=== PATIENT | male | born 1980 | race Caucasian/White ===

== ENCOUNTER 2017-09-12 08:53 | Outpatient (RCR) | payer OTHER | END 2017-10-07 | LOC: M PT 08:53 | DX: Z51.89 Encounter for other specified aftercare (principal); M25.579 Pain in unspecified ankle and joints of unspecified foot; M25.561 Pain in right knee | CPT/HCPCS: 97110 ==

== ENCOUNTER 2017-10-17 09:05 | Outpatient (RCR) | payer OTHER | END 2017-11-07 | LOC: M PT 09:05 | DX: Z51.89 Encounter for other specified aftercare (principal); M25.579 Pain in unspecified ankle and joints of unspecified foot; M25.561 Pain in right knee | CPT/HCPCS: 97110 ==

== ENCOUNTER → 2018-02-07 | Outpatient (REF) | payer OTHER | LOC: M LAB REF 18:28 | DX: R30.0 Dysuria (principal) | CPT/HCPCS: 87086 ==

== ENCOUNTER → 2018-02-07 | Outpatient (CLI) | payer OTHER | LOC: M RAD 11:32 | DX: R30.0 Dysuria (principal) | CPT/HCPCS: 74018 ==

== ENCOUNTER 2019-03-23 20:36 | Emergency (ER) | payer OTHER ==
[~2019-03-23] VITALS: Ht 177.8 cm; Wt 109.1 kg
[~2019-03-23 20:36] MED LIST: MAPA500T17 PO; METR500T10 PO; MILK10SU PO; NORCOBULK PO; NORCOTAB PO; TYLENOL PO; [UNRECOGNIZED DRUG - CODE] PO
[2019-03-23] MEDS ORDERED: ONDANSETRON 4MG/2ML VIAL (J2405) IV ONE (22:00)
[2019-03-23] MEDS ORDERED: NS 1,000 ML IV ONE (22:00)
[2019-03-23] MEDS ORDERED: KETOROLAC 30 MG/ML VIAL (J1885) IV ONE (22:00)
[2019-03-23 22:18] LABS: BASO # 0.1 10^3/uL (0.0-0.2); BASO % 0.5 % (0.0-1.0); EOS # 0.3 10^3/uL (0.0-0.50); EOS % 2.3 % (0.0-3.0); HEMATOCRIT 45.1 % (42.0-52.0); HEMOGLOBIN 15.5 g/dl (13.5-17.5); LYMPH # 3.2 10^3/uL (1.5-4.5); LYMPH % 23.6 % (24.0-44.0); MEAN CORPUSCULAR HEMOGLOBIN 31.5 pg (27.0-33.0); MEAN CORPUSCULAR HGB CONC 34.4 g/dl (32.0-36.5); MEAN CORPUSCULAR VOLUME 91.7 fl (80.0-96.0); MONO # 1.1 10^3/uL (0.0-0.8); NEUTROPHILS # 8.9 10^3/uL (1.8-7.7); NEUTROPHILS % 65.2 % (36.0-66.0); PLATELET COUNT, AUTOMATED 231 10^3/uL (150-450); RED BLOOD COUNT 4.92 10^6/uL (4.30-6.10); WHITE BLOOD COUNT 13.7 10^3/uL (4.0-10.0)
[2019-03-23 22:40] LABS: ALBUMIN 3.8 GM/DL (3.2-5.2); ALT/SGPT 35 U/L (12-78); BILIRUBIN,DIRECT 0.1 MG/DL (0.0-0.2); BILIRUBIN,TOTAL 0.4 MG/DL (0.2-1.0); BLOOD UREA NITROGEN 11 MG/DL (7-18); CARBON DIOXIDE LEVEL 27 MEQ/L (21-32); CHLORIDE LEVEL 108 MEQ/L (98-107); CREATININE FOR GFR 0.83 MG/DL (0.70-1.30); GLOMERULAR FILTRATION RATE > 60.0 (>60); GLUCOSE, FASTING 95 MG/DL (70-100); LIPASE 118 U/L (73-393); SODIUM LEVEL 142 MEQ/L (136-145); TOTAL PROTEIN 7.1 GM/DL (6.4-8.2)
[2019-03-23] MEDS ORDERED: ISOVUE-370 76% 100ML VIAL (Q9967) As Ordered ONE (23:25)
--- NOTE | 2019-03-24 01:05 | REPVR ---
EXAM: CT Abdomen and Pelvis With Contrast EXAM DATE/TIME: 03/23/2019 11:35 PM CLINICAL HISTORY: 38 years old, male; Right epigastric pain. TECHNIQUE: Imaging protocol: Axial computed tomography images of the abdomen and pelvis with intravenous contrast. Coronal and sagittal reformatted images were created and reviewed. Radiation optimization: All CT scans at this facility use at least one of these dose optimization techniques: automated exposure control; mA and/or kV adjustment per patient size (includes targeted exams where dose is matched to clinical indication); or iterative reconstruction. Contrast material: ISOVUE 370; Contrast volume: 100 ml; Contrast route: IV; COMPARISON: CT ABD PELVIS WITH CONTRAST 05/25/2013 7:53 AM (The report from this study was not available for review at the time of this interpretation.) FINDINGS: Lungs: There is bibasilar atelectasis. Heart: No cardiomegaly or pericardial effusion is noted. ABDOMEN: Liver: The attenuation of the liver is lower compared to the spleen, which can be seen with fatty liver infiltration. There is a 14 mm cyst in the caudate lobe that has increased in size from 5 mm since the prior CT scan on 05/25/2013. The contour of the liver is smooth. The liver is enlarged and measures 17.5 cm in craniocaudal dimension at the level of the right midclavicular line. Gallbladder and bile ducts: There has been a cholecystectomy. There is no fluid collection in the gallbladder fossa. No dilation of the bile ducts is noted. Pancreas: Normal. No dilation of the main pancreatic duct is noted. Spleen: Normal. No splenomegaly is noted. Adrenals: Normal. No adrenal mass. Kidneys and ureters: There is a 3 mm calculus in the inferior to the right kidney and a 3 mm calculus in the inferior pole of the left kidney. No stones are noted in the ureters. There is no hydronephrosis or hydroureter. No renal lesion is identified. There are no wedge-shaped areas of low attenuation in the kidneys to suggest pyelonephritis. There is no renal abscess or perinephric fluid collection. Stomach and bowel: There is no evidence for a bowel obstruction, diverticulosis, diverticulitis, colitis, pneumatosis intestinalis, intussusception, volvulus, or perforated viscus. Appendix: The retrocecal appendix is normal. There is no evidence for appendicitis. PELVIS: Bladder: Unremarkable. No calculi are noted in the bladder. Reproductive: There is a punctate calcification the prostate gland. The seminal vesicles are unremarkable. ABDOMEN and PELVIS: Intraperitoneal space: Unremarkable. No free air. No fluid collection. Bones/joints: There is a lumbosacral transitional vertebra that will be designated as L5 above the last well-defined intervertebral disc, and there is broadening of the both transverse proceses of the lumbosacral transitional vertebra, which are fused to both sides of the sacrum (Castellvi type IIIb lumbosacral transitional vertebra) and this stabilizes the level below the lumbosacral transitional vertebra and leads to the propensity for increased mobility and degenerative disc disease at the level above the lumbosacral transitional vertebra (Bertolotti's syndrome). T12 is designated as the last vertebral body that has small ribs. There are degenerative changes in lumbar spine at the L4-L5 and L5-S1 levels. Soft tissues: There is a small fat containing epigastric hernia that is new compared to the prior CT scan on 05/25/2013 and is located just to the right of midline and 3 cm superior to the umbilicus, and the hernia sac measures 3.4 cm in diameter and the defect in the anterior abdominal wall measures approximately 7 mm in transverse dimension and 5 mm in craniocaudal dimension. There is also a tiny fat containing umbilical hernia, which is similar in appearance compared to the prior CT scan on 05/25/2013. Vasculature: The abdominal aorta is normal in caliber and patent. The iliac arteries, common femoral arteries, renal arteries, celiac artery, superior mesenteric artery, and inferior mesenteric artery are patent. The renal veins, portal veins, splenic vein, superior mesenteric vein, and inferior mesenteric vein are patent. Lymph nodes: No enlarged lymph nodes. IMPRESSION: 1. Small fat containing epigastric hernia that is new compared to the prior CT scan on 05/25/2013 and is located just to the right of midline and 3 cm superior to the umbilicus. 2. Tiny fat containing umbilical hernia, which is similar in appearance compared to the prior CT scan on 05/25/2013. 3. Bilateral nonobstructive nephrolithiasis. 4. Hepatomegaly. Electronically signed by: Wellington Powell On 03/24/2019 01:05:00 AM
[2019-03-24] MEDS ORDERED: KETO10TAB PO (01:26)
[2019-03-24] MEDS ORDERED: CYCL5TAB PO (01:26)
[2019-03-24 01:30] VITALS: BP 138/96
[2019-03-24] MEDS ORDERED: CYCLOBENZAPRINE 10 MG TAB PO ONE (01:45)
== END 2019-03-24 01:40 | disposition home or self-care (01) ==
LOC: M ED 20:36
DX: K43.9 Ventral hernia without obstruction or gangrene (principal); R16.0 Hepatomegaly, not elsewhere classified; Q76.49 Other congenital malformations of spine, not associated with scoliosis; K40.90 Unilateral inguinal hernia, without obstruction or gangrene, not specified as recurrent; K42.9 Umbilical hernia without obstruction or gangrene; N20.0 Calculus of kidney; R51 Headache; Z87.442 Personal history of urinary calculi; Z72.0 Tobacco use
CPT/HCPCS: 74177; 80048; 80076; 81001; 83690; 85025; 96361; 96374; 96375; 99284; J1885; J2405; Q9967

== ENCOUNTER 2019-03-28 10:09 | Emergency (ER) | payer OTHER ==
[~2019-03-28] VITALS: Ht 175.3 cm; Wt 105.9 kg
[~2019-03-28 10:09] MED LIST changes: +CYCL5TAB PO; +KETO10TAB PO
[2019-03-28 10:57] LABS: BASO # 0.1 10^3/uL (0.0-0.2); BASO % 0.5 % (0.0-1.0); EOS # 0.4 10^3/uL (0.0-0.50); EOS % 3.2 % (0.0-3.0); HEMOGLOBIN 15.9 g/dl (13.5-17.5); LYMPH # 2.6 10^3/uL (1.5-4.5); LYMPH % 21.3 % (24.0-44.0); MEAN CORPUSCULAR HEMOGLOBIN 31.6 pg (27.0-33.0); MEAN CORPUSCULAR HGB CONC 33.8 g/dl (32.0-36.5); MEAN CORPUSCULAR VOLUME 93.4 fl (80.0-96.0); MONO # 0.6 10^3/uL (0.0-0.8); MONO % 5.2 % (0.0-5.0); NEUTROPHILS # 8.6 10^3/uL (1.8-7.7); NEUTROPHILS % 69.5 % (36.0-66.0); PLATELET COUNT, AUTOMATED 207 10^3/uL (150-450); RED BLOOD COUNT 5.03 10^6/uL (4.30-6.10); WHITE BLOOD COUNT 12.3 10^3/uL (4.0-10.0)
[2019-03-28] MEDS ORDERED: NS 1,000 ML IV ONE (11:15)
[2019-03-28] MEDS ORDERED: KETOROLAC 30 MG/ML VIAL (J1885) IV ONE (11:15)
[2019-03-28] MEDS ORDERED: ONDANSETRON 4MG/2ML VIAL (J2405) IV ONE (11:15)
[2019-03-28 11:27] LABS: ALBUMIN 3.1 GM/DL (3.2-5.2); ALT/SGPT 25 U/L (12-78); BILIRUBIN,DIRECT 0.1 MG/DL (0.0-0.2); BILIRUBIN,TOTAL 0.6 MG/DL (0.2-1.0); BLOOD UREA NITROGEN 12 MG/DL (7-18); CALCIUM LEVEL 9.1 MG/DL (8.5-10.1); CARBON DIOXIDE LEVEL 23 MEQ/L (21-32); CHLORIDE LEVEL 110 MEQ/L (98-107); CREATININE FOR GFR 0.83 MG/DL (0.70-1.30); GLOMERULAR FILTRATION RATE > 60.0 (>60); GLUCOSE, FASTING 147 MG/DL (70-100); LIPASE 78 U/L (73-393); POTASSIUM SERUM 4.1 MEQ/L (3.5-5.1); SODIUM LEVEL 142 MEQ/L (136-145); TOTAL PROTEIN 6.6 GM/DL (6.4-8.2)
[2019-03-28 11:35] LABS: MONO SCRN NEGATIVE (NEGATIVE)
[2019-03-28] MEDS: GASTROGRAFIN SOLUTION 30ML PO SCH ×2 (12:18→13:00)
[2019-03-28] MEDS ORDERED: ISOVUE-370 76% 100ML VIAL (Q9967) As Ordered ONE (12:55)
--- NOTE | 2019-03-28 14:36 | REP ---
REASON FOR EXAM: Right-sided abdominal pain. COMPARISON: 03/23/2019 The lung bases are unchanged. Curvilinear densities are present consistent with subsegmental atelectatic changes, status quo. There is a simple cyst in the caudate lobe of the liver. There are no enhancing hepatic abnormalities. The spleen, pancreas, adrenal glands, and kidneys are unchanged. Tiny nonobstructing nephroliths are seen bilaterally. The abdominal aorta and para-aortic regions are unchanged and again seen to be within the normal limits. There are a few gas and fluid-filled mildly dilated small bowel loops in the upper abdomen. There is no free fluid or free air. The appendix is all visualized and there is mild periappendiceal fatty infiltration. CT PELVIS: There is a trace amount of free pelvis fluid increased slightly from the prior exam. There is no free air. There is no pelvic mass or adenopathy. The pelvic bowel loops are unremarkable. There is an unchanged tiny right paramedian ventral hernia. Bone window technique throughout the exam shows the osseous structures to be stable and intact. IMPRESSION: 1. The appendix is not abnormally dilated and there is no definite abnormal appendiceal wall thickening or enhancement. There is periappendiceal fatty infiltration with fatty infiltration of the mesoappendix, which represents a change, although subtle, from the prior exam. This is seen in association with mild small bowel ileus. Changes from early appendicitis cannot be ruled out. 2. Other findings as described above. Electronically Signed by Dequan Mcelroy DO 03/28/2019 02:50 P
[2019-03-28] MEDS ORDERED: CIPR-249 PO (15:22)
[2019-03-28] MEDS ORDERED: FLAG500T PO (15:22)
[2019-03-28 15:38] VITALS: BP 148/99
--- NOTE | 2019-03-31 13:48 | ED PDOC ---
Post-Departure Follow-Up kareem nguyen faxed formal report of ct abd/p for fu Thomas Low MD Mar 31, 2019 13:48
== END 2019-03-28 15:40 | disposition home or self-care (01) ==
LOC: M ED 10:09
DX: K56.7 Ileus, unspecified (principal); K52.9 Noninfective gastroenteritis and colitis, unspecified; R51 Headache; Z87.442 Personal history of urinary calculi; Z87.440 Personal history of urinary (tract) infections; F17.210 Nicotine dependence, cigarettes, uncomplicated
CPT/HCPCS: 74177; 80048; 80076; 81001; 83690; 85025; 86308; 96360; 96361; 99284; Q9963; Q9967

== ENCOUNTER → 2021-11-10 | Outpatient (CLI) | payer OTHER ==
[~2021-11-10] MED LIST changes: +CIPR-249 PO; +FLAG500T PO
== END ==
LOC: M RAD 14:03
PROVIDERS: ATTEND Physician Assistant
DX: R51.9 Headache, unspecified (principal)

== ENCOUNTER 2022-11-20 17:23 | Emergency (ER) | payer OTHER ==
[~2022-11-20] VITALS: Ht 175.3 cm; Wt 115.5 kg
[2022-11-20 17:25] VITALS: BP 173/113
[2022-11-20] MEDS ORDERED: IBUP200T46 PO (18:17)
[2022-11-20] MEDS ORDERED: PERCOCET 5MG/325MG TAB PO ONE (22:15)
[2022-11-24] MEDS ORDERED: TRAM50TA2 PO (11:44)
== END 2022-11-20 22:28 | disposition home or self-care (01) ==
LOC: M ED 17:23
DX: S82.431A Displaced oblique fracture of shaft of right fibula, initial encounter for closed fracture (principal); W00.0XXA Fall on same level due to ice and snow, initial encounter; Y92.410 Unspecified street and highway as the place of occurrence of the external cause; F17.200 Nicotine dependence, unspecified, uncomplicated

== ENCOUNTER → 2022-11-24 | Outpatient (CLI) | payer OTHER ==
[~2022-11-24] MED LIST changes: +IBUP200T46 PO; +TRAM50TA2 PO
== END ==
LOC: M LABSMTC 10:13
PROVIDERS: ATTEND Anesthesiology
DX: Z01.812 Encounter for preprocedural laboratory examination (principal); Z20.822 Contact with and (suspected) exposure to COVID-19

== ENCOUNTER 2022-11-27 10:26 | Day surgery (SDC) | payer OTHER ==
[~2022-11-27] VITALS: Ht 175.3 cm; Wt 107.5 kg
[~2022-11-27 10:26] MED LIST changes: +ceFAZolin SOD 2 GM in IV 1 EA IV ONE; +oxyCODONE 5MG TAB PO ONE
[2022-11-27] MEDS ORDERED: ONDANSETRON 4MG 2ML VIAL As Ordered ONE (10:54)
[2022-11-27] MEDS ORDERED: LIDOCAINE 2% 100MG/5ML SDV (FOR ANES.) As Ordered ONE (10:54)
[2022-11-27] MEDS ORDERED: propofoL 200 MG/20 ML VIAL As Ordered ONE (10:54)
[2022-11-27] MEDS ORDERED: MIDAZOLAM INJ 2MG/2ML VIAL As Ordered ONE (10:54)
[2022-11-27] MEDS ORDERED: fentaNYL 250 MCG/5 ML INJECTION As Ordered ONE (10:54)
[2022-11-27] MEDS ORDERED: ACET-897 PO (11:08)
[2022-11-27] MEDS ORDERED: LR 1,000 ML IV SCH ×2 (11:45→14:05)
[2022-11-27] MEDS ORDERED: BUPIVACAINE/EPIN 0.25% 30ML VIAL As Ordered ONE (12:22)
[2022-11-27] MEDS ORDERED: BUPIVACAINE LIPOSOME/PF 1.3% 20ML VIAL (13.3MG/ML)(EXPAREL) As Ordered ONE ×2 (12:42→12:59)
[2022-11-27] MEDS ORDERED: BUPIVACAINE HCL 0.5% 30ML VIAL As Ordered ONE ×2 (12:42→12:49)
[2022-11-27] MEDS ORDERED: ACETAMINOPHEN 1000MG 100ML IV BAG As Ordered ONE (13:07)
[2022-11-27] MEDS ORDERED: KETOROLAC 60MG 2ML VIAL As Ordered ONE (13:27)
[2022-11-27] MEDS ORDERED: ONDANSETRON 4MG 2ML VIAL IV PRN (14:05)
[2022-11-27] MEDS ORDERED: fentaNYL 100 MCG/2 ML INJECTION IV PRN (14:05)
[2022-11-27] MEDS ORDERED: ROPIvacaine 0.5% 30ML VIAL PN ONE (14:05)
[2022-11-27] MEDS ORDERED: EPINEPHrine INJ 1 MG/ML 1ML AMP PN ONE (14:05)
[2022-11-27] MEDS ORDERED: LIDOCAINE 1% SDV 5ML VIAL PN ONE (14:05)
[2022-11-27] MEDS ORDERED: PERC5TAB12 PO (14:15)
[2022-11-27] MEDS: oxyCODONE 5MG TAB PO PRN ×2 (14:26→15:15)
[2022-11-27] MEDS: fentaNYL 100 MCG/2 ML INJECTION IV PRN ×4 (14:36→14:54)
[2022-11-27] MEDS: MIDAZOLAM INJ 2MG/2ML VIAL IV PRN ×2 (14:57→14:58)
[2022-11-27 16:30] VITALS: BP 158/98
== END 2022-11-27 16:40 | disposition home or self-care (01) ==
LOC: M SDC 10:26
PROVIDERS: ATTEND Orthopaedic Surgery
DX: S82.61XA Displaced fracture of lateral malleolus of right fibula, initial encounter for closed fracture (principal); W00.0XXA Fall on same level due to ice and snow, initial encounter; Y92.89 Other specified places as the place of occurrence of the external cause; Y93.9 Activity, unspecified; Y99.9 Unspecified external cause status; I10 Essential (primary) hypertension; K21.9 Gastro-esophageal reflux disease without esophagitis; R51.9 Headache, unspecified; Z79.899 Other long term (current) drug therapy; F17.210 Nicotine dependence, cigarettes, uncomplicated
CPT/HCPCS: 27792; 27829; 76000; C1713; C9290; J0690; J1100; J2250; J2405; J3010

== ENCOUNTER → 2022-12-12 | Outpatient (CLI) | payer OTHER ==
[~2022-12-12] MED LIST changes: +ACET-897 PO; +PERC5TAB12 PO; -ceFAZolin SOD 2 GM in IV 1 EA IV ONE; -oxyCODONE 5MG TAB PO ONE
== END ==
LOC: M SOG 07:51
PROVIDERS: ATTEND Orthopaedic Surgery
DX: S82.831A Other fracture of upper and lower end of right fibula, initial encounter for closed fracture (principal); X58.XXXA Exposure to other specified factors, initial encounter; Y92.9 Unspecified place or not applicable; Y93.9 Activity, unspecified; Y99.9 Unspecified external cause status

== ENCOUNTER → 2023-01-03 | Outpatient (CLI) | payer OTHER | LOC: M SOG 08:03 | PROVIDERS: ATTEND Orthopaedic Surgery | DX: M25.571 Pain in right ankle and joints of right foot (principal); Z87.81 Personal history of (healed) traumatic fracture ==

== ENCOUNTER → 2023-02-14 | Outpatient (CLI) | payer OTHER | LOC: M SOG 08:06 | PROVIDERS: ATTEND Orthopaedic Surgery | DX: S82.831D Other fracture of upper and lower end of right fibula, subsequent encounter for closed fracture with routine healing (principal) ==

== ENCOUNTER 2023-03-12 16:20 | Emergency (ER) | payer OTHER ==
[~2023-03-12] VITALS: Ht 177.8 cm; Wt 106.5 kg
[2023-03-12 18:31] LABS: BASO # 0.1 10^3/uL (0.0-0.2); BASO % 0.5 % (0.0-1.0); EOS # 0.4 10^3/uL (0.0-0.5); EOS % 2.4 % (0.0-3.0); HEMATOCRIT 47.7 % (42.0-52.0); LYMPH # 2.8 10^3/uL (1.5-5.0); LYMPH % 15.5 % (24.0-44.0); MEAN CORPUSCULAR HEMOGLOBIN 31.7 pg (27.0-33.0); MEAN CORPUSCULAR HGB CONC 33.5 g/dl (32.0-36.5); MEAN CORPUSCULAR VOLUME 94.5 fl (80.0-96.0); MONO # 1.4 10^3/uL (0.0-0.8); MONO % 7.9 % (2.0-8.0); NEUTROPHILS % 73.2 % (36.0-66.0); PLATELET COUNT, AUTOMATED 192 10^3/uL (150-450); RED BLOOD COUNT 5.05 10^6/uL (4.30-6.10); WHITE BLOOD COUNT 17.8 10^3/uL (4.0-10.0)
[2023-03-12 18:55] LABS: BLOOD UREA NITROGEN 19 MG/DL (9-23); CALCIUM LEVEL 8.2 MG/DL (8.5-10.1); CARBON DIOXIDE LEVEL 26 MMOL/L (20-31); CHLORIDE LEVEL 108 MMOL/L (98-107); CREATININE FOR GFR 0.85 MG/DL (0.70-1.30); GLOMERULAR FILTRATION RATE > 60.0 (>60); GLUCOSE, FASTING 100 MG/DL (60-100); POTASSIUM SERUM 3.9 MMOL/L (3.5-5.1); SODIUM LEVEL 140 MMOL/L (136-145)
[2023-03-12] MEDS ORDERED: AMPICILLIN SOD/SULBACTAM SOD 3 GM in D5W MINI-BAG PLUS 100 ML IV ONE (19:10)
[2023-03-12] MEDS ORDERED: methylPREDNISolone 125MG 2ML VIAL IV ONE (19:10)
[2023-03-12] MEDS ORDERED: ONDANSETRON 4MG 2ML VIAL IV ONE (19:10)
[2023-03-12] MEDS ORDERED: MORPHINE 4 MG/ML 1ML VIAL IV PRN (19:10)
[2023-03-12] MEDS ORDERED: ISOVUE-370 76% 100ML VIAL As Ordered ONE (19:15)
[2023-03-12] MEDS ORDERED: IBUP200C25 PO (20:47)
[2023-03-12] MEDS ORDERED: OXYCODONE/APAP 5MG/325MG(HOME DOSE PACK) PO ONE (21:10)
[2023-03-12] MEDS ORDERED: LOSARTAN 50MG TABLET PO ONE (21:10)
[2023-03-12] MEDS ORDERED: PERC5TAB12 PO (21:12)
[2023-03-12] MEDS ORDERED: AUGM500T34 PO (21:12)
[2023-03-12] MEDS ORDERED: LOSA100T46 PO (21:12)
[2023-03-12 21:42] VITALS: BP 181/113
[2023-03-12 22:55] VITALS: BP 159/94; TEMP 98.5; O2SAT 94
== END 2023-03-12 22:56 | disposition home or self-care (01) ==
LOC: M ED 16:20
DX: K04.7 Periapical abscess without sinus (principal); I10 Essential (primary) hypertension; F17.200 Nicotine dependence, unspecified, uncomplicated; F12.10 Cannabis abuse, uncomplicated
CPT/HCPCS: 70487; 80048; 85025; 86140; 87040; 99283; J0295; J2405; J2930; Q9967

== ENCOUNTER 2023-10-25 05:56 | Emergency (ER) | payer OTHER ==
[~2023-10-25] VITALS: Ht 175.3 cm; Wt 111.8 kg
[~2023-10-25 05:56] MED LIST changes: +AUGM500T34 PO; +IBUP200C25 PO; +LOSA100T46 PO
[2023-10-25] MEDS ORDERED: NITROGLYCERIN 0.4MG SUBL TABLET SL PRN (06:15)
[2023-10-25] MEDS ORDERED: ASPIRIN 81MG CHEW TABLET PO ONE (06:15)
[2023-10-25] MEDS ORDERED: ONDANSETRON 4MG 2ML VIAL IV ONE (06:15)
[2023-10-25] MEDS ORDERED: TENECTEPLASE 50 MG KIT (TNKase) IV ONE (06:25)
[2023-10-25] MEDS ORDERED: HEPARIN SOD (PORCINE) 5000UNITS/ML 1ML VIAL/SYRINGE IV ONE (06:25)
[2023-10-25] MEDS ORDERED: METOPROLOL TART 25 MG TABLET PO ONE (06:25)
[2023-10-25 06:32] LABS: BASO # 0.1 10^3/uL (0.0-0.2); BASO % 0.6 % (0.0-1.0); EOS # 0.6 10^3/uL (0.0-0.5); EOS % 3.7 % (0.0-3.0); HEMATOCRIT 49.9 % (42.0-52.0); LYMPH # 3.7 10^3/uL (1.5-5.0); MEAN CORPUSCULAR HEMOGLOBIN 32.1 pg (27.0-33.0); MEAN CORPUSCULAR HGB CONC 34.1 g/dl (32.0-36.5); MEAN CORPUSCULAR VOLUME 94.3 fl (80.0-96.0); MONO # 1.6 10^3/uL (0.0-0.8); MONO % 9.4 % (2.0-8.0); NEUTROPHILS # 10.8 10^3/uL (1.5-8.5); NEUTROPHILS % 63.9 % (36.0-66.0); PLATELET COUNT, AUTOMATED 216 10^3/uL (150-450); RED BLOOD COUNT 5.29 10^6/uL (4.30-6.10); WHITE BLOOD COUNT 16.9 10^3/uL (4.0-10.0)
[2023-10-25] MEDS ORDERED: ISOVUE-370 76% 100ML VIAL As Ordered ONE (06:32)
[2023-10-25] MEDS: MORPHINE 2 MG/ML 1ML VIAL IV PRN ×2 (06:35→07:17)
[2023-10-25 06:44] LABS: INR 0.96; PROTHROMBIN TIME 12.5 SECONDS (12.5-14.5)
[2023-10-25 06:45] LABS: PARTIAL THROMBOPLASTIN TIME 28.4 SECONDS (24.8-34.2)
[2023-10-25 06:52] LABS: LIPASE 38 U/L (12-53)
[2023-10-25] MEDS: METOPROLOL 5 MG/5 ML VIAL IV PRN ×2 (06:53→07:17)
[2023-10-25 06:54] LABS: ALBUMIN 3.7 G/DL (3.2-5.2); ALKALINE PHOSPHATASE 179 U/L (46-116); ALT/SGPT 34 U/L (7.0-40); AST/SGOT 17 U/L (<34); BILIRUBIN,DIRECT 0.2 MG/DL (<0.4); BILIRUBIN,TOTAL 0.5 MG/DL (0.3-1.2); BLOOD UREA NITROGEN 17 MG/DL (9-23); CALCIUM LEVEL 8.9 MG/DL (8.5-10.1); CARBON DIOXIDE LEVEL 28 MMOL/L (20-31); CHLORIDE LEVEL 107 MMOL/L (98-107); CPK CREATINE PHOSPHOKINASE 165 U/L (46-171); CREATININE FOR GFR 0.78 MG/DL (0.70-1.30); GLOMERULAR FILTRATION RATE > 60.0 (>60); GLUCOSE, FASTING 128 MG/DL (60-100); MB/CK RELATIVE INDEX 1.21 (< OR =4); POTASSIUM SERUM 3.5 MMOL/L (3.5-5.1); SODIUM LEVEL 140 MMOL/L (136-145); TOTAL PROTEIN 6.5 G/DL (5.7-8.2)
[2023-10-25] MEDS ORDERED: CLOPIDOGREL 300 MG TAB (PLAVIX) PO ONE (07:00)
[2023-10-25] MEDS ORDERED: HEPARIN DRIP 25,000 UNITS in IV 1 EA IV SCH (07:00)
[2023-10-25] MEDS ORDERED: NS 500 ML IV ONE ×2 (07:10)
[2023-10-25 07:17] VITALS: BP 126/72
[2023-10-25 08:08] LABS: RSV AMPLIFICATION NEGATIVE (NEGATIVE)
[2023-10-25 08:30] VITALS: BP 102/60; TEMP 97; O2SAT 98
[2023-10-25] MEDS ORDERED: IBUP200C28 PO (09:21)
== END 2023-10-25 08:35 | disposition short-term general hospital (02) ==
LOC: M ED 05:56
DX: I21.3 ST elevation (STEMI) myocardial infarction of unspecified site (principal); I10 Essential (primary) hypertension; F17.210 Nicotine dependence, cigarettes, uncomplicated; F12.90 Cannabis use, unspecified, uncomplicated; F10.10 Alcohol abuse, uncomplicated; Z79.1 Long term (current) use of non-steroidal anti-inflammatories (NSAID)
CPT/HCPCS: 71045; 71275; 80053; 82248; 82550; 82553; 83690; 85025; 85610; 85730; 87631; 93005; 96365; 96375; 99285; J2405; J3101; Q9967

== ENCOUNTER → 2023-12-26 | Outpatient (REF) | payer OTHER ==
[~2023-12-26] MED LIST changes: +IBUP200C28 PO
[2023-12-26 18:07] LABS: BASO # 0.1 10^3/uL (0.0-0.2); BASO % 0.6 % (0.0-1.0); EOS # 0.4 10^3/uL (0.0-0.5); EOS % 3.5 % (0.0-3.0); HEMATOCRIT 47.9 % (42.0-52.0); LYMPH # 2.9 10^3/uL (1.5-5.0); MEAN CORPUSCULAR HEMOGLOBIN 32.3 pg (27.0-33.0); MEAN CORPUSCULAR HGB CONC 33.4 g/dl (32.0-36.5); MEAN CORPUSCULAR VOLUME 96.6 fl (80.0-96.0); MONO % 8.7 % (2.0-8.0); NEUTROPHILS # 7.6 10^3/uL (1.5-8.5); NEUTROPHILS % 62.8 % (36.0-66.0); PLATELET COUNT, AUTOMATED 217 10^3/uL (150-450); RED BLOOD COUNT 4.96 10^6/uL (4.30-6.10)
[2023-12-26 18:16] LABS: ERYTHROCYTE SEDIMENTATION RATE 5 mm/hr (0-15)
[2023-12-26 18:51] LABS: ALBUMIN 3.7 G/DL (3.2-5.2); ALKALINE PHOSPHATASE 160 U/L (46-116); ALT/SGPT 51 U/L (7.0-40); AST/SGOT 22 U/L (<34); BILIRUBIN,TOTAL 0.6 MG/DL (0.3-1.2); BLOOD UREA NITROGEN 25 MG/DL (9-23); CALCIUM LEVEL 9.3 MG/DL (8.5-10.1); CARBON DIOXIDE LEVEL 23 MMOL/L (20-31); CHLORIDE LEVEL 110 MMOL/L (98-107); CREATININE FOR GFR 0.76 MG/DL (0.70-1.30); GLOMERULAR FILTRATION RATE > 60.0 (>60); GLUCOSE, FASTING 90 MG/DL (60-100); POTASSIUM SERUM 4.5 MMOL/L (3.5-5.1); SODIUM LEVEL 142 MMOL/L (136-145); TOTAL PROTEIN 6.4 G/DL (5.7-8.2)
[2023-12-27 13:34] LABS: RHEUMATOID FACTOR QUANT 6.3 IU/ML (<14)
== END ==
LOC: M LAB REF 16:20
PROVIDERS: ATTEND Physician Assistant
DX: M25.50 Pain in unspecified joint (principal); R51.9 Headache, unspecified; M54.50 Low back pain, unspecified

== ENCOUNTER 2024-02-11 06:48 | Emergency (ER) | payer OTHER ==
[~2024-02-11] VITALS: Ht 175.3 cm; Wt 110.8 kg
[2024-02-11] MEDS: NS 1,000 ML IV ONE (08:30)
[2024-02-11 08:31] LABS: BASO # 0.1 10^3/uL (0.0-0.2); BASO % 0.5 % (0.0-1.0); EOS # 0.4 10^3/uL (0.0-0.5); EOS % 2.7 % (0.0-3.0); HEMATOCRIT 45.1 % (42.0-52.0); HEMOGLOBIN 15.3 g/dl (13.5-17.5); LYMPH # 2.8 10^3/uL (1.5-5.0); LYMPH % 21.7 % (24.0-44.0); MEAN CORPUSCULAR HEMOGLOBIN 32.3 pg (27.0-33.0); MEAN CORPUSCULAR HGB CONC 33.9 g/dl (32.0-36.5); MEAN CORPUSCULAR VOLUME 95.3 fl (80.0-96.0); MONO # 1.2 10^3/uL (0.0-0.8); MONO % 9.2 % (2.0-8.0); NEUTROPHILS # 8.4 10^3/uL (1.5-8.5); NEUTROPHILS % 65.5 % (36.0-66.0); PLATELET COUNT, AUTOMATED 190 10^3/uL (150-450); RED BLOOD COUNT 4.73 10^6/uL (4.30-6.10); WHITE BLOOD COUNT 12.8 10^3/uL (4.0-10.0)
[2024-02-11] MEDS: dexAMETHasone 20MG/5ML VIAL IV ONE (08:31)
[2024-02-11] MEDS: AMPICILLIN SOD/SULBACTAM SOD 3 GM in D5W MINI-BAG PLUS 100 ML IV ONE ×2 (08:31→14:42)
[2024-02-11 08:37] LABS: ERYTHROCYTE SEDIMENTATION RATE 8 mm/hr (0-15)
[2024-02-11] MEDS ORDERED: ISOVUE-370 76% 100ML VIAL As Ordered ONE (08:42)
[2024-02-11] MEDS: KETOROLAC 30 MG/ML 1ML VIAL IV ONE (09:29)
[2024-02-11 12:39] VITALS: BP 145/77; TEMP 97.7; O2SAT 96
[2024-02-11] MEDS ORDERED: HYDR-3713 PO (14:52)
[2024-02-11] MEDS ORDERED: AMOX875T2 PO (14:52)
[2024-02-11] MEDS ORDERED: METO1TAB32 PO (15:01)
[2024-02-11] MEDS ORDERED: ATOR80TA59 PO (15:01)
[2024-02-14] MEDS ORDERED: ASPI81TA26 PO (10:36)
[2024-02-14] MEDS ORDERED: LISI10TA22 PO (10:36)
[2024-02-14] MEDS ORDERED: amoxicillin PO (10:36)
== END 2024-02-11 15:15 | disposition home or self-care (01) ==
LOC: M ED 06:48
DX: K04.7 Periapical abscess without sinus (principal); I25.2 Old myocardial infarction; I10 Essential (primary) hypertension; F17.200 Nicotine dependence, unspecified, uncomplicated
CPT/HCPCS: 70487; 80047; 85025; 85652; 86140; 96365; 96367; 96375; 99284; J0295; J1100; J1885; Q9967

== ENCOUNTER 2024-02-14 16:10 | Inpatient (IN) | payer OTHER ==
[~2024-02-14] VITALS: Ht 175.3 cm; Wt 109.9 kg
[~2024-02-14 16:10] MED LIST changes: +AMOX875T2 PO; +ASPI81TA26 PO; +ATOR80TA59 PO; +HYDR-3713 PO; +LISI10TA22 PO; +METO1TAB32 PO; +amoxicillin PO
[2024-02-14 16:46] VITALS: BP 131/89; TEMP 96.6; O2SAT 94
[2024-02-14] MEDS ORDERED: MAALOX 30 ML SUSP *UDC PO PRN (17:05)
[2024-02-14] MEDS ORDERED: MOM 30ML SUSPENSION UDC PO PRN (17:05)
[2024-02-14] MEDS ORDERED: METO1TAB32 PO (18:05)
[2024-02-14] MEDS ORDERED: PRAS10TA2 PO (18:05)
[2024-02-14] MEDS ORDERED: AMOX875T2 PO (18:05)
[2024-02-14] MEDS ORDERED: ATOR80TA59 PO (18:05)
[2024-02-14] MEDS ORDERED: HYDR-3713 PO (18:05)
[2024-02-14] MEDS ORDERED: HOME MED LIST COMPLETE! XX SCH (18:10)
[2024-02-14 18:16] LABS: IONIZED CALCIUM 4.7 MG/DL (4.5-5.3)
[2024-02-14 18:20] LABS: BASO # 0.1 10^3/uL (0.0-0.2); BASO % 0.6 % (0.0-1.0); EOS # 0.3 10^3/uL (0.0-0.5); EOS % 2.7 % (0.0-3.0); HEMATOCRIT 43.5 % (42.0-52.0); LYMPH # 3.2 10^3/uL (1.5-5.0); LYMPH % 26.1 % (24.0-44.0); MEAN CORPUSCULAR HEMOGLOBIN 32.9 pg (27.0-33.0); MEAN CORPUSCULAR HGB CONC 34.5 g/dl (32.0-36.5); MEAN CORPUSCULAR VOLUME 95.4 fl (80.0-96.0); MONO % 7.8 % (2.0-8.0); NEUTROPHILS # 7.7 10^3/uL (1.5-8.5); NEUTROPHILS % 62.5 % (36.0-66.0); PLATELET COUNT, AUTOMATED 233 10^3/uL (150-450); RED BLOOD COUNT 4.56 10^6/uL (4.30-6.10); WHITE BLOOD COUNT 12.4 10^3/uL (4.0-10.0)
[2024-02-14 18:49] LABS: BLOOD UREA NITROGEN 23 MG/DL (9-23); CALCIUM LEVEL 8.8 MG/DL (8.5-10.1); CARBON DIOXIDE LEVEL 25 MMOL/L (20-31); CHLORIDE LEVEL 108 MMOL/L (98-107); CREATININE FOR GFR 0.91 MG/DL (0.70-1.30); GLOMERULAR FILTRATION RATE > 60.0 (>60); GLUCOSE, FASTING 83 MG/DL (60-100); MAGNESIUM LEVEL 2.2 MG/DL (1.8-2.4); PHOSPHORUS LEVEL 3.9 MG/DL (2.5-4.9); POTASSIUM SERUM 4.2 MMOL/L (3.5-5.1); SODIUM LEVEL 139 MMOL/L (136-145)
[2024-02-14 18:56] LABS: PROCALCITONIN <0.04 ng/ml
[2024-02-14 19:03] VITALS: BP 145/92; TEMP 97; O2SAT 92
[2024-02-14] MEDS: AMPICILLIN SOD/SULBACTAM SOD 3 GM in D5W MINI-BAG PLUS 100 ML IV SCH (20:18)
[2024-02-14 23:40] VITALS: BP 131/78; TEMP 97.3; O2SAT 93
[2024-02-15 03:57] VITALS: BP 142/91; TEMP 97.1; O2SAT 95
[2024-02-15 06:26] LABS: BASO # 0.1 10^3/uL (0.0-0.2); BASO % 0.6 % (0.0-1.0); EOS # 0.3 10^3/uL (0.0-0.5); EOS % 2.8 % (0.0-3.0); HEMATOCRIT 43.8 % (42.0-52.0); HEMOGLOBIN 14.9 g/dl (13.5-17.5); LYMPH # 2.6 10^3/uL (1.5-5.0); LYMPH % 21.4 % (24.0-44.0); MEAN CORPUSCULAR HEMOGLOBIN 33.3 pg (27.0-33.0); MEAN CORPUSCULAR VOLUME 97.8 fl (80.0-96.0); MONO # 0.9 10^3/uL (0.0-0.8); MONO % 7.3 % (2.0-8.0); NEUTROPHILS # 8.1 10^3/uL (1.5-8.5); NEUTROPHILS % 67.5 % (36.0-66.0); PLATELET COUNT, AUTOMATED 196 10^3/uL (150-450); RED BLOOD COUNT 4.48 10^6/uL (4.30-6.10); WHITE BLOOD COUNT 12.1 10^3/uL (4.0-10.0)
[2024-02-15 06:56] LABS: BLOOD UREA NITROGEN 20 MG/DL (9-23); CARBON DIOXIDE LEVEL 26 MMOL/L (20-31); CHLORIDE LEVEL 109 MMOL/L (98-107); CREATININE FOR GFR 0.69 MG/DL (0.70-1.30); GLOMERULAR FILTRATION RATE > 60.0 (>60); GLUCOSE, FASTING 94 MG/DL (60-100); MAGNESIUM LEVEL 2.1 MG/DL (1.8-2.4); POTASSIUM SERUM 4.2 MMOL/L (3.5-5.1); SODIUM LEVEL 141 MMOL/L (136-145)
[2024-02-15 08:00] VITALS: BP_SYST 147; BP_SYST 148; BP_SYST 180; BP_DIAS 104; BP_DIAS 106; BP_DIAS 120; TEMP 97.5; O2SAT 95
[2024-02-15] MEDS: ACETAMINOPHEN TAB 650MG DOSE (2X325MG) PO PRN (08:18)
[2024-02-15] MEDS: ATORVASTATIN 20 MG TAB PO SCH (08:18)
[2024-02-15] MEDS: **hydrALAZINE** 10 MG TAB PO ONE (11:08)
[2024-02-15 12:00] VITALS: BP 148/110; TEMP 97.1; O2SAT 96
[2024-02-15] MEDS ORDERED: fentaNYL 100 MCG/2 ML INJECTION ONE ×2 (13:50→14:14)
[2024-02-15] MEDS ORDERED: MIDAZOLAM INJ 2MG/2ML VIAL ONE (13:50)
[2024-02-15] MEDS ORDERED: propofoL 200 MG/20 ML VIAL ONE ×2 (13:50→13:51)
[2024-02-15] MEDS ORDERED: LIDOCAINE 2% 100MG/5ML SDV (FOR ANES.) ONE (13:51)
[2024-02-15] MEDS ORDERED: SUGAMMADEX SODIUM 500 MG/5 ML VIAL (BRIDION) ONE (13:51)
[2024-02-15] MEDS ORDERED: ROCURONIUM BROMIDE 50MG/5ML VIAL ONE (13:51)
[2024-02-15] MEDS: UNASYN 3GM VIAL As Ordered ONE (14:25)
[2024-02-15] MEDS ORDERED: KETOROLAC 60MG 2ML VIAL ONE (14:34)
[2024-02-15] MEDS: MEPIVACAINE HCL 3 % 1.7 ML DENTAL CARTRIDGE (CARBOCAINE) As Ordered ONE (14:35)
[2024-02-15] MEDS: LIDOCAINE 2% W/ EPINEPHRINE 1.7 ML DENTAL INJ As Ordered ONE (14:35)
[2024-02-15] MEDS ORDERED: fentaNYL 100 MCG/2 ML INJECTION IV PRN (15:05)
[2024-02-15] MEDS ORDERED: LR 1,000 ML IV SCH (15:05)
[2024-02-15] MEDS ORDERED: ONDANSETRON 4MG 2ML VIAL IV PRN (15:05)
[2024-02-15] MEDS ORDERED: oxyCODONE 5MG TAB PO PRN (15:05)
[2024-02-15 15:22] VITALS: BP 169/93
[2024-02-15] MEDS: LABETALOL 100MG/20ML VIAL IV PRN (15:22)
[2024-02-15] MEDS: HYDROMORPHONE HCL 0.5 MG/ 0.5 ML SYRINGE IV PRN (15:22)
[2024-02-15 16:00] VITALS: BP 150/98; TEMP 97; O2SAT 88; O2SAT 92
[2024-02-15] MEDS: NICOTINE 21MG/24HR 1 EA TRANSDERMAL TD PRN (16:20)
[2024-02-15 17:00] VITALS: BP 186/110; TEMP 98; O2SAT 95
[2024-02-15] MEDS ORDERED: ASPIRIN 81MG ENTERIC TABLET PO SCH (18:00)
[2024-02-15] MEDS ORDERED: PRASUGREL 10MG TABLET (PATIENT'S OWN MED) PO SCH (18:00)
[2024-02-15] MEDS ORDERED: AMOX875T2 PO (18:15)
== END 2024-02-15 18:11 | disposition left against medical advice (07) | DRG 114 ==
LOC: M PCU 16:32
PROVIDERS: ADMIT Student in an Organized Health Care Education/Training Program; ATTEND Student in an Organized Health Care Education/Training Program
PROC: 0CDWXZ1 Extraction of Upper Tooth, Multiple, External Approach (ICD-10-PCS; principal; 2024-02-15 13:15)
DX: K04.7 Periapical abscess without sinus (principal); I10 Essential (primary) hypertension; I25.2 Old myocardial infarction; Z95.5 Presence of coronary angioplasty implant and graft; N40.0 Benign prostatic hyperplasia without lower urinary tract symptoms; M19.90 Unspecified osteoarthritis, unspecified site; K21.9 Gastro-esophageal reflux disease without esophagitis; F17.200 Nicotine dependence, unspecified, uncomplicated; Z79.02 Long term (current) use of antithrombotics/antiplatelets; Z79.82 Long term (current) use of aspirin; Z79.899 Other long term (current) drug therapy

== ENCOUNTER → 2024-02-27 | Outpatient (REF) | payer OTHER, MEDICAID ==
[~2024-02-27] MED LIST changes: +PRAS10TA2 PO
== END ==
LOC: M LAB REF 16:22
PROVIDERS: ATTEND Physician Assistant
DX: M25.50 Pain in unspecified joint (principal); W57.XXXA Bitten or stung by nonvenomous insect and other nonvenomous arthropods, initial encounter; Y92.9 Unspecified place or not applicable; Y93.9 Activity, unspecified; Y99.9 Unspecified external cause status